=== PATIENT | female | born 1955 | race Caucasian/White ===

== ENCOUNTER 2018-03-25 09:26 | Outpatient (CLI) | payer BC | END 2018-03-25 09:27 | disposition home or self-care (01) | LOC: BICMAMMO 09:26 | PROVIDERS: ATTEND Clinical Nurse Specialist Medical-Surgical | DX: Z12.31 Encounter for screening mammogram for malignant neoplasm of breast (principal); I10 Essential (primary) hypertension | CPT/HCPCS: 77063; 77067 ==

== ENCOUNTER 2019-03-19 08:37 | Emergency (ER) | payer BC ==
[2019-03-19 09:37] LABS: Bilirubin Negative (Negative); Blood, Urine Small (Negative); Clarity CLEAR (Clear); Glucose, Urine (Dipstick) Negative (Negative); Leukocyte Small (Negative); Nitrite Negative (Negative); Protein, Urine (Dipstick) Negative (Neg-Trace); Specific Gravity, Urine 1.023 (1.002-1.036); Urobilinogen 0.2 mg/dL (0.2-1.0)
[2019-03-19 09:56] LABS: Bacteria/HPF None Seen HPF (None Seen); Hyaline Casts/LPF 0-3 HYALINE CAST LPF (0-3 Hyaline)
[2019-03-19] MEDS ORDERED: Ketorolac Tromethamine 60 MG/2 ML VIAL ONE (10:00)
[2019-03-19 10:08] LABS: #Monocytes 0.5 thou/uL (0.11-0.59); #Neutrophils 7.5 thou/uL (1.40-6.50); %Basophils 0.3 % (0.0-1.0); %Eosinophils 0.3 % (0.0-10.0); %Lymphocytes 10.6 % (21.0-51.0); %Monocytes 5.9 % (0.0-10.0); %Neutrophils 82.9 % (42.0-75.0); Mean Corpuscular HGB CONC 33.3 g/dL (32.0-36.0); Mean Corpuscular Hemoglobin 31.8 pg (27.0-31.0); Mean Corpuscular Volume 95.5 fL (78.0-98.0); Mean Platelet Volume 7.8 fL (7.4-10.4); Platelet Count 207 thou/uL (130-400); RBC Distribution Width 12.3 % (11.5-14.5)
--- NOTE | 2019-03-19 10:20 | CT ---
CT STONE PROTOCOL: HISTORY: Abdominal pain radiating to the left hip and back Disclaimer: Absence of oral and IV contrast reduces the sensitivity of the exam probably for the eval uation of solid organs and bowel. FINDINGS: The lung bases are clear. No free air or free fluid is seen in the abdomen or pelvis. The patient is post cholecystectomy and hysterectomy. There are calculi in the left kidney, the largest measuring about 5 mm. No calculi are seen in the right kidney, either ureter or the urinary bladder. No hydrour eteronephrosis is noted in either side. There are vascular calcifications without evidence of aneurysmal dilatation of the abdominal aorta. T here are degenerative changes in the spine. IMPRESSION: Nonobstructing left renal calculi.
[2019-03-19 10:32] LABS: ALT (SGPT) 25 U/L (8-55); AST (SGOT) 17 U/L (5-34); Albumin 3.9 g/dL (3.4-4.8); Alkaline Phosphatase 81 U/L (40-150); Anion Gap 11 mmol/L (10-20); BUN (Urea Nitrogen) 25 mg/dL (9.8-20.1); Bilirubin, Total 0.6 mg/dL (0.2-1.2); Calc. Creatinine Clearance 0 mL/min (70-130); Carbon Dioxide 26 mmol/L (23-31); Chloride 106 mmol/L (98-107); Estimated GFR-MDRD 61; Globulin 2.4 g/dL (2.4-3.5); Glucose 122 mg/dL (80-115); Potassium 3.5 mmol/L (3.5-5.1); Protein, Total 6.3 g/dL (6.0-8.3); Sodium 139 mmol/L (136-145)
[2019-03-19] MEDS ORDERED: Morphine 4 MG/ML VIAL ONE (10:57)
[2019-03-19] MEDS ORDERED: ISOVUE-370 76%-LOCM 1 ML ONE (11:24)
--- NOTE | 2019-03-19 11:53 | CT ---
CT AORTIC DISSECTION PROTOCOL WITH IMAGING THROUGH THE CHEST AND ABDOMEN, IV CONTRAST AND 3-D POSTPRO CESSING: HISTORY: Sharp pain in the abdomen. FINDINGS: There is good contrast opacification of the thoracoabdominal aorta without aneurysm or dissection. Th ere is mild stenosis of the origins of the renal arteries. There is good flow in the celiac axis, SMA and FABIEN. The main pulmonary arteries are well opacified without filling defects to suggest central pulmonary e mbolism. No pleural or pericardial effusions are seen. No pneumothoraces, lobar consolidation or lung masses are identified. No free air or free fluid or lymphadenopathy seen in the abdomen. Nonobstructing left renal calculi a re present. The patient is post colostomy. The solid organs are otherwise unremarkable. There are degenerative changes in the thoracic lumbar spine. IMPRESSION: No CT evidence of aortic dissection.
== END 2019-03-19 13:06 | disposition home or self-care (01) ==
LOC: ERS 08:37
DX: N39.0 Urinary tract infection, site not specified (principal); M54.5 Low back pain; E78.5 Hyperlipidemia, unspecified; Z79.899 Other long term (current) drug therapy
CPT/HCPCS: 36415; 71275; 74176; 80053; 81003; 81015; 84484; 85025; 87086; 93005; 96361; 96374; 96375; J1885; J2270; Q9966